=== PATIENT | male | born 1995 | race Caucasian/White ===

== ENCOUNTER 2017-06-05 18:34 | Emergency (ER) | payer OTHER ==
[~2017-06-05] VITALS: Ht 182.9 cm; Wt 127.0 kg
[2017-06-05 18:36] VITALS: BP 158/74
== END 2017-06-05 21:35 | disposition left against medical advice (07) ==
LOC: ER 18:34
DX: M79.606 Pain in leg, unspecified (principal); Z53.21 Procedure and treatment not carried out due to patient leaving prior to being seen by health care provider